=== PATIENT | female | born 1965 | race Caucasian/White ===

== ENCOUNTER → 2017-02-06 | Outpatient (CLI) | payer OTHER ==
[~2017-02-06] MED LIST: DOXYCYCLINE 10100 MG PO; NO HOME MEDICATIONS; PREMARIN 0.60.625 M1 PO; PREMARIN VAG42.5 GM VG
== END ==
LOC: COL.RAD 07:47
DX: K82.4 Cholesterolosis of gallbladder (principal)

== ENCOUNTER 2018-08-09 06:27 | Day surgery (SDC) | payer OTHER ==
[~2018-08-09] VITALS: Ht 175.3 cm; Wt 68.6 kg
[2018-08-09] MEDS ORDERED: VYVANSE40 MG PO (06:39)
[2018-08-09] MEDS ORDERED: KLONOPIN 0.5MG0.5 MG PO (06:41)
[2018-08-09] MEDS ORDERED: EFFEXOR XR75 MG/CAP PO (06:41)
[2018-08-09] MEDS ORDERED: WELLBUTRIN XL300 M1 PO (06:41)
[2018-08-09] MEDS ORDERED: VALTREX 50500 MG/TAB PO (06:42)
[2018-08-09] MEDS ORDERED: REQUIP 0.5MG0.5 MG PO (06:42)
[2018-08-09] MEDS ORDERED: ASPIRIN 81M81 MG/TA2 PO (06:43)
[2018-08-09 07:04] VITALS: BP 119/81; PULSE 82; TEMP 97.7
[2018-08-09 08:05] VITALS: BP 128/75; PULSE 73
[2018-08-09 08:20] VITALS: BP 122/73; PULSE 63
[2018-08-09 08:35] VITALS: BP 130/80; PULSE 63
== END 2018-08-09 08:45 | disposition home or self-care (01) ==
LOC: SDCO 06:27
DX: Z12.11 Encounter for screening for malignant neoplasm of colon (principal); K62.1 Rectal polyp; Z88.8 Allergy status to other drugs, medicaments and biological substances
CPT/HCPCS: J2250; J2405; J3010; J7030

== ENCOUNTER 2018-09-25 17:00 | Outpatient (RCR) | payer OTHER ==
[~2018-09-25 17:00] MED LIST changes: +ASPIRIN 81M81 MG/TA2 PO; +EFFEXOR XR75 MG/CAP PO; +KLONOPIN 0.5MG0.5 MG PO; +REQUIP 0.5MG0.5 MG PO; +VALTREX 50500 MG/TAB PO; +VYVANSE40 MG PO; +WELLBUTRIN XL300 M1 PO
== END 2018-09-26 13:16 | disposition home or self-care (01) ==
LOC: WSC 17:00
DX: M54.2 Cervicalgia (principal)